=== PATIENT | female | born 1980 | race Caucasian/White ===

== ENCOUNTER → 2019-09-22 | Outpatient (CLI) | payer BC, SELFPAY ==
--- NOTE | 2019-09-22 15:18 | RAD_ITS ---
STUDY: X-RAY - PELVIS AND LEFT HIP REASON FOR EXAM: Female, 39 years old. Pain. TECHNIQUE: 3 views of the pelvis and hip. COMPARISON: None. FINDINGS: There is a non-specific bowel gas pattern. Normal visualized soft tissue structures. Normal bilateral iliac wings, sacroiliac joints and visualized sacrum. Normal bilateral superior and inferior pubic rami. Normal pubic symphysis. Normal bilateral ischial tuberosities. Normal visualized femoral head. Normal acetabulum. Normal hip joint. RAD/HIP, UNI W/ Pelvis 2-3 Views IMPRESSION: Normal x-ray examination of the pelvis and hip. Electronically Signed: Omar Mathur MD at 15:54 EST , Service support ,
== END | disposition home or self-care (01) ==
LOC: HPRAD 15:14
PROVIDERS: Family Provider Internal Medicine; PCP Internal Medicine; Referring Provider Nurse Practitioner; Visit Provider Nurse Practitioner
DX: M25.552 Pain in left hip (principal)
CPT/HCPCS: 73502

== ENCOUNTER → 2019-09-24 | Outpatient (CLI) | payer BC, SELFPAY ==
[2019-09-30 15:30] LABS: HPV Reflexed? NOT INDICATED
== END | disposition home or self-care (01) ==
LOC: LABSPEC 15:51
PROVIDERS: Family Provider Internal Medicine; PCP Internal Medicine; Referring Provider Obstetrics & Gynecology; Visit Provider Obstetrics & Gynecology
DX: Z12.4 Encounter for screening for malignant neoplasm of cervix (principal)
CPT/HCPCS: 88175; G0145

== ENCOUNTER → 2019-10-06 | Outpatient (CLI) | payer BC, SELFPAY ==
--- NOTE | 2019-10-06 07:01 | BI_ITS ---
MAMMOGRAPHY - BILATERAL SCREENING REASON FOR EXAM: Female, 39 years old. Routine annual screening examination. PERTINENT HISTORY: Aunt with breast cancer. TECHNIQUE: Digital bilateral breast deborah (3D mammographic acquisition) in the CC and MLO projections. 2-D mediolateral oblique (MLO) and craniocaudad (CC) views of both breasts were obtained. CAD: Full Field Digital Mammography with Computer Added Detection was performed. COMPARISON: None. Baseline examination. FINDINGS: Breast Composition: The breasts are heterogeneously dense, which may obscure small masses. There are no dominant masses or suspicious calcifications. No other significant abnormalities are identified. BI/SCREEN MAMM (CAD) W/DEBORAH BILAT IMPRESSION: Negative screening mammogram. Yearly followup mammogram recommended. (A) ASSESSMENT CATEGORY: BIRADS Category 1: Negative. A letter regarding these results will be sent to the patient by the facility within 30 days. Approximately 10% of breast cancers are not detected by mammography. A normal mammogram should not delay biopsy of a clinically suspicious abnormality. [id number] Electronically Signed: Geraldo Denise, at 8:19 EST , Service support ,
== END | disposition home or self-care (01) ==
LOC: OPBI 06:59
PROVIDERS: Family Provider Nurse Practitioner; PCP Nurse Practitioner; Referring Provider Obstetrics & Gynecology; Visit Provider Obstetrics & Gynecology
DX: Z12.31 Encounter for screening mammogram for malignant neoplasm of breast (principal)
CPT/HCPCS: 77063; 77067

== ENCOUNTER → 2021-05-12 12:15 | Outpatient (CLI) | payer BC, SELFPAY ==
[2021-05-18 11:45] LABS: HPV Reflexed? NOT INDICATED
== END ==
PROVIDERS: PCP Nurse Practitioner; Visit Provider Obstetrics & Gynecology
DX: Z12.4 Encounter for screening for malignant neoplasm of cervix (principal)
CPT/HCPCS: 88175; G0145

== ENCOUNTER → 2021-06-02 07:03 | Outpatient (CLI) | payer BC, SELFPAY ==
--- NOTE | 2021-06-02 07:06 | BI_ITS ---
MAMMOGRAPHY - BILATERAL SCREENING REASON FOR EXAM: Female, 40 years old. Routine annual screening examination. PERTINENT HISTORY: Aunt with breast cancer. TECHNIQUE: Digital bilateral breast deborah (3D mammographic acquisition) in the CC and MLO projections. 2-D mediolateral oblique (MLO) and craniocaudad (CC) views of both breasts were obtained. CAD: Full Field Digital Mammography with Computer Added Detection was performed. COMPARISON: Comparison is made with prior examination dated 10/06/2019. FINDINGS: Breast Composition: The breasts are heterogeneously dense, which may obscure small masses. There are no dominant masses or suspicious calcifications. Stable benign-appearing bilateral axillary lymph nodes. No other significant abnormalities are identified. There has been no significant change since the prior study. BI/SCRN MAMM (CAD)W/DEBORAH BILAT IMPRESSION: Stable bilateral screening mammogram. Yearly follow-up mammogram recommended. (A) ASSESSMENT CATEGORY: BIRADS Category 2: Benign. A letter regarding these results will be sent to the patient by the facility within 30 days. Approximately 10% of breast cancers are not detected by mammography. A normal mammogram should not delay biopsy of a clinically suspicious abnormality. [id number] Electronically Signed: Geraldo Denise MD at 8:44 EDT , Service support ,
== END ==
PROVIDERS: PCP Nurse Practitioner; Referring Provider Obstetrics & Gynecology; Visit Provider Obstetrics & Gynecology
DX: Z12.31 Encounter for screening mammogram for malignant neoplasm of breast (principal)
CPT/HCPCS: 77063; 77067

== ENCOUNTER → 2021-10-07 10:08 | Outpatient (CLI) | payer BC, SELFPAY ==
--- NOTE | 2021-10-07 09:50 | EMB_PTH ---
PATIENT: AMBER DANIELS LOC: [facility] U#:[id number] AGE/SX: 45/F ROOM: RE10/07/[address]: Dr. Zack Myers MD : 1980 BED: DIS: SPEC #: [id number] RECD: 10/07/21 12:37 STATUS: WENCESLAO RERamses #: [id number] GAGAN: 10/07/21 09:[address]: Zack Myers DEPT: SURGICAL PATHOLOGY RECD BY: Camila Freeman ENTERED: 10/07/21 14:21 SP TYPE: ENDOM BX/C GIN DR: RAYSA Ling Tissues: Endometrium, NOS Procedures: Surgery Specimen Level IV HEADER OPERATION: Endometrial biopsy PRE-OP DIAGNOSIS: TISSUE SUBMITTED: Endometrial biopsy MICROSCOPIC DIAGNOSIS Endometrium, biopsy: Secretory endometrium with changes of simple cystic hyperplasia without atypia. AM:tonja 10/10/2021 COMMENT Case has been reviewed in consultation with Dr. Lock who concurs with the above diagnosis. IDC:AM MICROSCOPIC DESCRIPTION Slides are reviewed. GROSS DESCRIPTION Received in fixative is one container labeled with the patient's name and designated endometrial biopsy. The specimen consists of multiple irregular and elongated fragments of pink-miller soft tissue that in aggregate measure 3 x 2.2 x 0.2 cm. The specimen is totally submitted in one cassette. / AM:tonja 10/07/21 TC:5 CPT: 09164
== END ==
PROVIDERS: PCP Nurse Practitioner; Visit Provider Obstetrics & Gynecology
DX: Z12.4 Encounter for screening for malignant neoplasm of cervix (principal)
CPT/HCPCS: 88305

== ENCOUNTER 2021-12-27 05:22 | Day surgery (SDC) | payer BC, SELFPAY ==
--- NOTE | 2021-12-20 16:16 | EKG12_ITS ---
Test Reason : PREOP Blood Pressure : / mmHG Vent. Rate : 089 BPM Atrial Rate : 089 BPM P-R Int : 140 ms QRS Dur : 082 ms QT Int : 388 ms P-R-T Axes : 034 -22 039 degrees QTc Int : 472 ms Normal sinus rhythm Normal ECG Confirmed by FEDERICO WILLS, UTE ([id number]), society editor RANDY SUAREZ ([id number]) on 12/21/2021 7:22:04 AM Referred By: Zack Myers Confirmed By:UTE CABALLERO MD
[2021-12-20 17:10] LABS: Hematocrit 32.1 % (37-47); Hemoglobin 10.4 g/dL (12.0-15.0); Mean Corp Hgb Conc 32.4 g/dL (32-36); Mean Corpuscular Hgb 25.4 pg (27.0-32.0); Mean Corpuscular Volume 78.3 fL (81-99); Mean Platelet Vol. 9.4 fl (6.2-12.0); Platelet Count 380 K/mm3 (150-450); RBC Distribution Width CV 15.4 % (11.6-14.6); RBC Distribution Width SD 43.4 fl (35.1-43.9); White Blood Count 9.4 K/mm3 (4.4-11.0)
[2021-12-20 17:24] LABS: International Normalized Ratio 0.9; Prothrombin Time (Protime)PT. 11.7 SECONDS (11.7-14.9)
[2021-12-20 17:25] LABS: Partial Thromboplast Time 32.6 Seconds (24.1-36.2)
[2021-12-20 18:21] LABS: Internal QC Validated? YES +Cl - CLEAR BKGD; Pregnancy, Serum, hCG Quali. NEGATIVE Negative
[2021-12-27] VITALS (14 sets, daily range): BP systolic 104–151; BP diastolic 68–97; PULSE 67–97; RESP 11–18; TEMP 36.1–36.7; O2SAT 90–100; BMI 44.5
[2021-12-27] MEDS: Gabapentin 600 MG Tablet PO (06:03)
[2021-12-27] MEDS: Lactated Ringers 1,000 ML 40 ML IV (06:03)
[2021-12-27] MEDS: Acetaminophen 500 MG Tablet 1000 MG PO (06:03)
[2021-12-27 06:41] LABS: Bedside Glucose 111 mg/dL (70-110)
--- NOTE | 2021-12-27 07:30 | HYST_PTH ---
PATIENT: AMBER DANIELS [place] [facility] [place][id number] AGE/SX: 41/F ROOM: RE12/27/[address]: Dr. Zack Myers MD : 1980 BED: DIS: 12/27/2021 SPEC #: [id number] RECD: 12/27/21 11:13 STATUS: WENCESLAO CHAI #: [id number] GAGAN: 12/27/21 07:[address]: Zack Myers DEPT: SURGICAL PATHOLOGY RECD BY: Camila Freeman ENTERED: 12/27/21 12:00 SP TYPE: HYSTERECT OTHR DR: Louisa Troncoso, PHOTO CARTOGRAPHER-C Tissues: Uterus, NOS Procedures: Surgery Specimen Level V HEADER OPERATION: ERAS, lap robotic hysterectomy, bilateral salpingectomy PRE-OP DIAGNOSIS: Premenopausal menorrhagia and simple endometrial hyperplasia TISSUE SUBMITTED: Cervix, uterus and bilateral fallopian tubes MICROSCOPIC DIAGNOSIS Uterus, cervix, bilateral fallopian tubes, hysterectomy and bilateral salpingectomy: Cervix ? chronic inflammation and squamous metaplasia. Endometrium ? proliferative endometrium with focal simple cystic hyperplasia without atypia and morular metaplasia. Myometrium ? focal adenomyosis. - A minute submucosal leiomyoma. Bilateral fallopian tubes - no pathologic diagnosis. Left paratubal cyst. SJ:rg 12/28/2021 COMMENT Please make reference to previous specimen ([id number]) endometrium, biopsy with diagnosis of ?secretory endometrium with changes of simple cystic hyperplasia without atypia.? MICROSCOPIC DESCRIPTION Slides are reviewed. GROSS DESCRIPTION Received in fixative is one container labeled with the patient's name and designated cervix, uterus and bilateral fallopian tubes. The specimen consists of a hysterectomy specimen consisting of uterus with cervix and attached bilateral fallopian tubes. The uterus with cervix weighs 132 gm and measures 11 x 7 x 5 cm. The serosal surface shows a focal ragged area. The ectocervical mucosa is unremarkable. The external os is circular in contour. The endocervical canal measures 3.5 cm in length and the endocervical mucosa is miller, glistening and unremarkable. The triangular endometrial cavity measures 5.5 cm in length and up to 3 cm in width. The endometrium is miller, glistening without any mass lesion and measures 0.1 cm in thickness. Sections of the uterine wall do not reveal any mass lesion and it measures up to 2.5 cm in thickness. The right fallopian tube measures 7 cm in length and 0.6 cm in diameter. The fimbrial end is identified. Sections reveal unremarkable cut surfaces. The left fallopian tube is similar appearance to right and measures 6.5 cm in length and 0.6 cm in diameter. A paratubal cyst is also noted measuring 0.6 cm in greatest dimension. Mail Sorter And Delivery sections are submitted in 12 cassettes as follows: 1??anterior cervix, 2 - posterior cervix, 3-6 - anterior uterine wall, 7-10 - posterior uterine wall (entire endometrium is submitted), 11 - right fallopian tube, 12 - left fallopian tube and paratubal cyst. / SJ:rg 12/27/2021 TC:5 CPT: 43694
--- NOTE | 2021-12-27 07:37 | PCM.HP.BLA ---
History and Physical Date of Admission: 12/27/21 Surgical History and Physical Jennifer Bronson, a 41 year old female 2 0 0 0 2, presents for RAVH/BS on December 27, 2021. -- Menorrhagia; Simple EM Hyperplasia -- Menorrhagia and simple hyperplasia which began months ago. Jennifer claims it started gradually It occurs intermittantly. It is located in the vagina. Additional comments are: unable to tolerate provera; strong family history of gynecologic cancers; wants to proceed with hysterectomy. MEDICATIONS HISTORY: Patient is also takin. losartan 50 mg tablet, One pill by mouth once a day ALLERGIES: NKDA Infections - Chicken pox Illnesses - none Accidents - None Hospitalizations - see surgery Review of Systems: GENERAL - Denies fever, or chills SKIN - Denies skin changes EYES - Denies visual changes EARS - Denies difficulty hearing NOSE - Denies nasal congestion or bleeding MOUTH - Denies sore throat or difficulty swallowing NECK - Denies pain or swelling RESPIRATORY - Denies shortness of breath or wheezing CARDIOVASCULAR - Denies palpitations or chest pain GASTROINTESTINAL - Denies nausea, vomiting, diarrhea, constipation GENITOURINARY - Denies dysuria, frequency of urination, incontinence of urine MUSCULOSKELETAL - Denies joint or muscle pain NEUROLOGICAL - Denies localized numbness or weakness PSYCHIATRIC - Denies depression or anxiety ENDOCRINE - Denies heat or cold intolerance, weight loss or gain HEMATO-IMMUNOLOGIC - Denies excesive bleeding with cuts SOCIAL HISTORY: Alcohol Use - None Smoking - Never Diet - no particular diet Lifestyle - moderate stress lifestyle and Exercise - regular Seat Belt Use - always 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 Father: DM II and Heart Disease. Maternal Grandmother: Colon Cancer. Paternal Grandmother: DM II. MENSTRUAL HISTORY: LMP Known?- DefiniteAmount/Duration - 15 days, Regularity - Regular, Frequency - monthly days, LMP - 10/14/21, Age Onset Menarche - 11 PAST PREGNANCIES: Total Pregnancies - 2; Full Term Pregnancies - 2; Premature - 0; Abortions, Induced - 0; Abortions, Spontaneous - 0; Ectopics - 0; Multiple Births - 0; Living Children - 2 SURGICAL HISTORY: 1. 04/28/1996 2. 03/06/2002 PHYSICAL EXAM BP- 126/74 Sitting, Right arm, large cuff Weight- 293.0 lbs Height- 67 inch BMI:45.9 CONSTITUTIONAL - NAD, well nourished, and well developed SKIN - No rash, lesions, or ulcers HEENT - Normocephalic, PERRLA, EOMI NECK - No nodes, no nuchal rigidity and thyroid normal size and texture LYMPH NODES - Palpation of lymph nodes in neck and groins within normal limits LUNGS - CTA x2 without wheezes, crackles or rales CARDIAC - Regular rate and rhythm without rubs, murmurs, or gallops BREAST - No dominant masses, no tenderness, no axillary adenopathy, no nipple discharge, no skin changes ABDOMEN - Without hepatosplenomegaly, distention, masses, rebound, or guarding; normal bowel sounds; no hernias EXTREMITIES - No edema or calf tenderness NEUROLOGICAL - Cranial nerves II-XII grossly intact PSYCHIATRIC - A and O to time, place, person, mood and affect External Genitial Vagina - non-tender without lesions Urethra/Urethral Meatus - non-tender Bladder - non-tender Vagina - vaginal sanchez are pink and moist without loss of rugae and no evidence of atropy Cervix - without cervical motion tenderness and has normal size and features without evident lesions Uterus - multiparous size 6 cm & wt 75-125 g Adnexa - clear without massess or tenderness ASSESSMENT/PLAN: 1. Premenopausal Menorrhagia and Simp Endomet Hyperplasia Discussed options for treatment and patient declines further progesterone treatment including IUD or oral. Wants to proceed with hysterectomy. Plan RAVH/BS. Discussed RBAs and all questions answered.
--- NOTE | 2021-12-27 07:50 | OP.PCM_ITS ---
Report of Operation Date of Procedure: 12/27/21 Pre-Operative Diagnosis: Menorrhagia, Simple Endometrial Hyperplasia Post-Operative Diagnosis: Menorrhagia, Simple Endometrial Hyperplasia Surgery/Procedure Performed:: Robotic Assisted Vaginal Hysterectomy and Bilateral Salpingectomy Description of Surgical Findings:: 10 cm uterus with normal-appearing fallopian tubes and ovaries. Evidence of prior section with bladder adhered to the anterior portion of the uterus. Surgeon: Zack Myers paper box cutter: Peter Light Type of Anesthesia: General (Endotracheal) Anesthesiologist: John Martinez Specimen's removed: Uterus and bilateral fallopian tubes Drains: Nayak to straight drain (removed at end of case) Estimated Blood Loss (mL): Minimal Fluids Replaced: Crystalloid Description of Procedure: Surgeon: Zack Myers MD, FACOG Indication: This is a 41 year old patient who has been having problems with heavy periods and simple endometrial hyperplasia. Conservative measures have not been helpful. The patient has been counseled regarding the risks, benefits and alternatives of this procedure including the possibility of bleeding, infection, and injury to surrounding structures such as bowel bladder and all questions were answered. She understands that if BSO is needed that she will need to be on HRT for an indefinite period of time. Procedure: Pt taken to the operating room where, after induction of general anesthesia, the patient was prepped and draped in the usual sterile fashion and placed on a non-slip Huggy-u-vac device. Trendelenburg test was satisfactory. Bladder was drained of urine with a Nayak catheter which was left in place. Anterior cervix grasped and cervix was dilated to about 3-4 mm. Uterus sounded to 10 cms. 0-Vicryl suture was placed at the 3:00 and 9:00 position of the cervix. A small [employer] Business Process Expert Uterine Manipulator was then placed in the uterus and attention was turned to the laparoscopic portion of the procedure. Ropivocaine 0.5% was injected approximately 2-3 cm superior to the umbilicus and an 8 mm robotic camera port was introduced directly with intraperitoneal placement confirmed with CO2 insufflation. 8 mm robotic side ports were introduced under direct visualization approximately 11 cm lateral and 2 cm inferior to the umbilical port. A 5 mm left upper quadrant port was introduced and airseal insufflation with CO2 was started. The above findings were noted. Robot was docked without difficulty and attention turned to the robotic portion of the procedure. Approximately 30 cc of Ropivicaine was used. Bilateral mesosalpinx were ligated with 35 umanzor bipolar coagulation to the level of the round ligament. The posterior aspect of the cervix was identified and then opened for about 1 cm using 25 watt monopolar cautery identifying the uterine manipulating device which had been placed vaginally. Bladder flap was opened and divided to the level of the round ligaments using monopolar cautery. Progressive bites were then ligated on each side of the cervix with 35 umanzor bipolar cautery to the uterine arteries. The anterior vaginal mucosa was entered and cervix circumscribed with monopolar cautery. Uterus and attached tubes were removed through the vagina. Vaginal cuff was closed first with 0-Vicryl Rukhsana stitches placed at each angle followed by closure of the mid-cuff with 0- Monocryl V-lock suture in two layers. Pelvis was copiously irrigated with saline and the right and left ureter was noted to peristalse. Pop was placed across the vaginal cuff and pedicles to help with some oozing. Robot was undocked and trocars were removed with as much gas as possible. Incisions were closed with 4-0 Monocryl subcuticular sutures and incisions covered with steri-strips. The patient tolerated the procedure well and was taken to the recovery room in satisfactory condition. Sponge, instruments and needle counts were all correct. There were no apparent complications of the surgery. Ancef 3 gms IV was given prior to the procedure. Estimated Blood Loss: Minimal Specimen to Pathology: Uterus and bilateral fallopian tubes Grafts/Implants Used: None Complications None Admit VTE Documentation VTE Present on Admission: Yes VTE Mechan Device Prophylaxis: SCD's
[2021-12-27] MEDS: Ropivacaine 0.5% 30 ML Vial (08:13)
--- NOTE | 2021-12-27 09:45 | PCM.DC ---
Discharge Instructions Diet Discharge Diet: No restrictions Activity Discharge Activity: May Shower and May Take a Tub Bath May resume sexual activity in: 6 weeks (nothing in the vagina.) Lifting Restrictions: 25 pounds for 6 weeks. Additional Activity Instructions:: Nothing in the vagina for 6 weeks please; no lifting more than 20-25 lbs for 6 weeks. Use Ibuprophen 800 mg orally every 8 hours as needed for pain. Can also add Tylenol 1000 mg every 8 hours if needed for pain. If Ibuprophen and Tylenol are not effective then use the Oxycodone but keep in mind it can cause serious constipation issues. Drink lots of water. Call if bleeding more than a pad per hour. Use the colace as constipation is a big issue after this type of surgery. Steps and walking are OK. Activity is encouraged but do not over do it !! Dressing / Incision Call your doctor if your incision/area has: Continuous Slow Oozing, Sudden Increased Bleeding, Increased Pain/ Swelling, Increased Redness and Foul Smelling Discharge Call your doctor if you observe: Fever of 101 or Higher, Inability to urinate, Inability to have a bowel movement, Using more than 1 pad per hour and - (Some vaginal bleeding may be noted for up to 4-8 weeks.) Cleanse incision/area with: - (Let the soapy water run over your incision, rinse and pat dry.) Additional Dressing/Incision Instructions:: The white strips (Steri Strips) on your incisions will fall off on their own. If they fall off and it bothers you it is okay to put Band-Aids across the incisions. Follow Up Care Please Follow Up With: Zack Myers MD When: Call [phone] for an appointment to be seen in 2 weeks. Test Results: Test results from this visit will be discussed in further detail at your follow-up appointment, if applicable. Discharge Plan Admission Attending Provider: Zack Myers Primary Care Provider: Louisa Troncoso NP Discharge Orders/Prescriptions Prescriptions: New oxycodone 5 mg capsule 5 mg PO Q6H PRN (Reason: pain (scale score 7-10)) 7 Days Qty: 7 RF: 0 docusate sodium 100 mg tablet 100 mg PO BID PRN (Reason: constipation) Qty: 60 RF: 1 Continued losartan 50 mg Tablet 50 mg PO DAILY RF: 0 cholecalciferol (vitamin D3) [Vitamin D3] 125 mcg (5,000 unit) Tablet 125 mcg PO DAILY RF: 0 Other Ambulatory Orders: ,Urine (Routine) Timeframe: 20211226 Facility: [facility] - Location: Laboratory Ordered By: Dr. Poli Myers 12 Lead EKG (Routine) Timeframe: 20211220 Location: None Selected Ordered By: Dr. Poli Myers Referrals / Follow Up: Louisa Troncoso [employer], [employer] [Primary Care Provider] - Disposition Disposition (needs filled in before D/C Order can be placed): Home, Self Care
[2021-12-27] MEDS: Ondansetron 4 MG/2 ML Vial IV (10:59)
== END 2021-12-27 23:59 | disposition home or self-care (01) ==
LOC: SDC 05:23 → AC 05:23
PROVIDERS: PCP Nurse Practitioner; Referring Provider Obstetrics & Gynecology; Visit Provider Obstetrics & Gynecology
PROC: 0UT90ZZ Resection of Uterus, Open Approach (ICD-10-PCS; CPT S2900; principal; 2021-12-27 07:10)
DX: N85.01 Benign endometrial hyperplasia (principal); N87.9 Dysplasia of cervix uteri, unspecified; N83.8 Other noninflammatory disorders of ovary, fallopian tube and broad ligament; I10 Essential (primary) hypertension; Z79.899 Other long term (current) drug therapy
CPT/HCPCS: S2900; 00840; 58571; 36415; 82962; 84703; 85027; 85610; 85730; 86850; 86900; 86901; 88307; 93005; J7120; J2405

== ENCOUNTER → 2022-11-06 | Outpatient (CLI) | payer BC, SELFPAY ==
--- NOTE | 2022-11-06 13:41 | BI_ITS ---
MAMMOGRAPHY - BILATERAL SCREENING REASON FOR EXAM: Female, 42 years old. Routine annual screening examination. PERTINENT HISTORY: Aunt with breast cancer. TECHNIQUE: Digital bilateral breast deborah (3D mammographic acquisition) in the CC and MLO projections. 2-D mediolateral oblique (MLO) and craniocaudad (CC) views of both breasts were obtained. CAD: Full Field Digital Mammography with Computer Added Detection was performed. COMPARISON: Comparison is made with prior examination dated 06/02/2021 and 10/06/2019. FINDINGS: Breast Composition: The breasts are heterogeneously dense, which may obscure small masses. There are no dominant masses or suspicious calcifications. Stable small benign-appearing bilateral axillary lymph nodes. No other significant abnormalities are identified. There has been no significant change since the prior study. BI/SCRN MAMM (CAD)W/DEBORAH BILAT IMPRESSION: Stable bilateral screening mammogram. Yearly follow-up mammogram recommended. (A) ASSESSMENT CATEGORY: BIRADS Category 2: Benign. A letter regarding these results will be sent to the patient by the facility within 30 days. Approximately 10% of breast cancers are not detected by mammography. A normal mammogram should not delay biopsy of a clinically suspicious abnormality. [id number] Electronically Signed: Geraldo Denise MD at 8:47 EST ,
== END | disposition home or self-care (01) ==
LOC: OPBI 13:40
PROVIDERS: PCP Nurse Practitioner Family; Referring Provider Nurse Practitioner Family; Visit Provider Nurse Practitioner Family
DX: Z12.31 Encounter for screening mammogram for malignant neoplasm of breast (principal)
CPT/HCPCS: 77063; 77067

== ENCOUNTER → 2023-12-21 | Outpatient (CLI) | payer BC, SELFPAY ==
--- NOTE | 2023-12-21 09:36 | BI_ITS ---
MAMMOGRAPHY - BILATERAL SCREENING REASON FOR EXAM: Female, 43 years old. Routine annual screening examination. PERTINENT HISTORY: Aunt with breast cancer. TECHNIQUE: Digital bilateral breast deborah (3D mammographic acquisition) in the CC and MLO projections. 2-D mediolateral oblique (MLO) and craniocaudad (CC) views of both breasts were obtained. CAD: Full Field Digital Mammography with Computer Added Detection was performed. COMPARISON: Comparison is made with prior study dated November 06, 2022 and June 02, 2021. FINDINGS: Breast Composition: The breasts are heterogeneously dense, which may obscure small masses. There are no dominant masses or suspicious calcifications. Stable benign-appearing bilateral axillary lymph nodes. No other significant abnormalities are identified. There has been no significant change since the prior study. BI/SCRN MAMM (CAD)W/DEBORAH BILAT IMPRESSION: Stable bilateral screening mammogram. Yearly follow-up mammogram recommended. (A) ASSESSMENT CATEGORY: BIRADS Category 2: Benign. A letter regarding these results will be sent to the patient by the facility within 30 days. Approximately 10% of breast cancers are not detected by mammography. A normal mammogram should not delay biopsy of a clinically suspicious abnormality. [id number] Electronically Signed: Geraldo Denise MD at 12:56 EST ,
== END | disposition home or self-care (01) ==
LOC: OPBI 09:35
PROVIDERS: PCP Internal Medicine; Referring Provider Internal Medicine; Visit Provider Internal Medicine
DX: Z12.31 Encounter for screening mammogram for malignant neoplasm of breast (principal)
CPT/HCPCS: 77063; 77067

== ENCOUNTER → 2025-01-28 | Outpatient (CLI) | payer BC, SELFPAY ==
--- NOTE | 2025-01-28 08:30 | BI_ITS ---
PROCEDURE: SCRN MAMM (CAD)W/DEBORAH BILAT REASON FOR EXAM: F, Age 44 y/o , SCREENING MAMMOGRAM. Family history of breast cancer in 2 maternal aunts. TECHNIQUE: Bilateral screening digital breast tomosynthesis with 2D and 3D images. Computer aided detection. COMPARISON: 12/21/2023, 11/06/2022 FINDINGS: There are scattered areas of fibroglandular density. No suspicious masses, areas of developing architectural distortion, or suspicious calcifications. BI/SCRN MAMM (CAD)W/DEBORAH BILAT IMPRESSION: There is no mammographic evidence of malignancy. BI-RADS 1: NEGATIVE. RECOMMEND ANNUAL MAMMOGRAPHIC SCREENING. Follow-up code: Routine Follow-up The patient will be notified of the results by letter. Reading Location: [id number]
== END | disposition home or self-care (01) ==
LOC: OPBI 08:16
PROVIDERS: PCP Internal Medicine; Referring Provider Obstetrics & Gynecology; Visit Provider Obstetrics & Gynecology
DX: Z12.31 Encounter for screening mammogram for malignant neoplasm of breast (principal)
CPT/HCPCS: 77063; 77067

== ENCOUNTER → 2025-04-20 | Outpatient (CLI) | payer BC, SELFPAY ==
--- NOTE | 2025-04-20 09:57 | CDU_ITS ---
Reason For Study Reason For Study: Noise effect Rt inner ear Rt. Velocities/BP Lt. Velocities/BP Prox CCA 110/31 cm/sec. Prox CCA 90/26 cm/sec. Mid CCA 91/21 cm/sec. Mid CCA 70/26 cm/sec. Dist CCA 60/19 cm/sec. Dist CCA 71/28 cm/sec. Prox ICA 54/18 cm/sec. Prox ICA 56/20 cm/sec. Mid ICA 77/35 cm/sec. Mid ICA 83/41 cm/sec. Dist ICA 68/31 cm/sec. Dist ICA 108/41 cm/sec. Rt. ICA/CCA = 0.8. Lt. ICA/CCA = 1.5. Prox ECA 109/20 cm/sec. Prox ECA 90/18 cm/sec. Rt. Vert. 61/22 cm/sec. Lt. Vert. 53/23 cm/sec. Right Extracranial There is intimal thickening but no significant atherosclerotic plaque noted in the right common carotid artery. There is intimal thickening but no significant atherosclerotic plaque noted in the right internal carotid artery. There is no significant atherosclerotic plaque noted in the right external carotid artery. Antegrade flow is noted in the right vertebral artery. Left Extracranial There is intimal thickening but no significant atherosclerotic plaque noted in the left common carotid artery. There is intimal thickening but no significant atherosclerotic plaque noted in the left internal carotid artery. There is intimal thickening but no significant atherosclerotic plaque noted in the left external carotid artery. Antegrade flow is noted in the left vertebral artery. Procedure Carotid Duplex 92244. This is a Carotid Duplex examination using B-mode, color flow and specral Doppler. Exam performed in department. VL/Carotid Duplex Ultrasound Interpretation Summary No significant atherosclerotic plaque or stenosis noted in the internal carotid arteries bilaterally. Flow within the vertebral arteries is antegrade bilaterally. Ordering Physician: Tiffanie Nice Referring Physician: Tiffanie Nice Performed By: Barbara Chan, RDCS, RVT
== END | disposition home or self-care (01) ==
PROVIDERS: PCP Internal Medicine; Referring Provider Internal Medicine; Visit Provider Internal Medicine
DX: H83.3X1 Noise effects on right inner ear (principal)
CPT/HCPCS: 93880

== ENCOUNTER 2025-08-17 10:30 | Outpatient (RCR) | payer BC, SELFPAY ==
--- NOTE | 2025-08-03 09:58 | HP.PTEVAL ---
Patient's Visit Information Visit Information Visit Information: AMBER DANIELS is a 45 year old F referred to Physical Therapy by Dr. Tiffanie Nice DO with a diagnosis of C-spine pain with Radic/muscle spasms. Date of Evaluation: 08/03/25 Physical Therapist: ODALYS Conte Visit Plan Frequency: 1-2x /Week Duration: 6 Weeks Plan: 1-2X/ week for 6 weeks for MT to B paraspinals, centralization of sx using extension principle, traction, suboccip release, postural exercises, with HEP HEP: supine chin tucks 2 X 10 4x/day Subjective Subjective: Pt started to have neck pain for a few months. She thought it was a pillow issues and was sleeping wrong. She has always had a really tight neck and a bulge on one side. She has N&T in her sleep for the last few months down both arms during the night and wakes her up and down the L during the day not often. X-ray showed DDD and narrow at C5-C6. She has noticed some weakness in her fingers and struggling to open things in the last month. Today is last day of Prednisone and the pain has lightened up a little bit but still woke her up last night. She uses a heating pad a lot to help with the pain. Pain C-spine: Pain Intensity (Out of 10): 4 Objective Objective: C-spine AROM: flexion 100%, Ext 10% (increase pain), Rot L 75% (increase pain) and Rot R 90%, SB B 50% UE AROM: WFL Shoulder AROM UE MMT: (Pt reports L shoulder weaker as she broke it as a child) R shoulder flex 9.5 and L 7 R shoulder ABD 7.5 and L 7.6 R shoulder ER 11.9 and L 8.3 Bicep reflex B 2+/3 Posture: sits with upright posture Sports Administrator strength: R 84 and L 66 Massaged out on the R c-spine paraspinals and improved rotation ROM to the L with less pain. Chin tucks in supine: 3 X 10 with a towel...painful if goes too far to end range but improves the more that she did. Discussed upright posture Balance/Special Test Scores Oswestry Neck Score: 9 Goals Goal 1:: I HEP Goal Time Frame: 6-8 Weeks Goal 2:: Improve pain free c-spine AROM: (at the time of the eval: C-spine AROM: flexion 100%, Ext 10% (increase pain), Rot L 75% (increase pain) and Rot R 90%, SB B 50%) Goal Time Frame: 6-8 Weeks Goal 3:: Abolish N&T in B hands Goal Time Frame: 6-8 Weeks Rehabilitation Potential Rehabilitation Potential: Good Anticipated Interventions Patient/Client Instruction: Educate patient on: Condition and Plan of Care For the Purpose of:: To decrease pain, To increase ROM, To improve nutrient delivery to tissue, To improve muscle performance and motor function, To improve ability to perform ADL's, To increase tolerance to activity/condition/position, To improve performance and independence with ADL's, To decrease level of supervision to perform tasks, To improve ability of physical actions for home/community/work/leisure, To improve health of tissue, To decrease soft tissue restriction and To increase flexibility/ROM Therapeutic Exercise to Include: Strength training, Postural training, Neuromotor development, Passive ROM, Active ROM and Scapular Strength/Stabilization For the Purpose of:: To decrease pain, To increase ROM, To improve muscle performance and motor function, To improve ability to perform ADL's, To improve health of tissue, To decrease soft tissue restriction and To increase flexibility/ROM Manual Therapy Techniques to Include: Passive ROM and Soft tissue mobilization For the Purpose of:: To decrease pain, To increase ROM, To improve nutrient delivery to tissue, To improve muscle performance and motor function, To improve ability to perform ADL's, To improve gait and locomotor functions, To decrease soft tissue restriction and To increase flexibility/ROM IF ES: Yes Cryotherapy (ice pack, ice massage): Yes Thermo therapy (hot pack): Yes Ultrasound (thermal/non thermal): Yes Intermittent cervical traction: Yes For the Purpose of:: To decrease pain, To increase ROM, To improve nutrient delivery to tissue, To improve muscle performance and motor function, To increase tolerance to activity/condition/position, To improve health of tissue, To decrease soft tissue restriction and To increase flexibility/ROM Text: Thank you for the opportunity to evaluate your patient. For Medicare and Medicare HMO plans, please review the plan of care and approve it. It will need to be FAXED BACK to us at [phone] for Medicare purposes. For Medicare only, by signing this I certify the plan of care. Please let me know if there are questions or concerns regarding this plan of care. Physician Signature: Date:
--- NOTE | 2025-09-23 13:24 | HP.PTDCNRP_ITS ---
Patient Information Patient Information: AMBER DANIELS was seen in my office for initial evaluation on 08/03/25. The following Plan of Care was established for this patient: POC Established Initial Frequency: 1-2x /Week Initial Duration: 6 Weeks Anticipated Interventions Patient/Client Instruction: Educate patient on: Condition and Plan of Care For the Purpose of:: To decrease pain, To increase ROM, To improve nutrient delivery to tissue, To improve muscle performance and motor function, To improve ability to perform ADL's, To increase tolerance to activity/condition/position, To improve performance and independence with ADL's, To decrease level of supervision to perform tasks, To improve ability of physical actions for home/community/work/leisure, To improve health of tissue, To decrease soft tissue restriction and To increase flexibility/ROM Therapeutic Exercise to Include: Strength training, Postural training, Neuromotor development, Passive ROM, Active ROM and Scapular Strength/Stabilization For the Purpose of:: To decrease pain, To increase ROM, To improve muscle performance and motor function, To improve ability to perform ADL's, To improve health of tissue, To decrease soft tissue restriction and To increase flexibility/ROM Manual Therapy Techniques to Include: Passive ROM and Soft tissue mobilization For the Purpose of:: To decrease pain, To increase ROM, To improve nutrient delivery to tissue, To improve muscle performance and motor function, To improve ability to perform ADL's, To improve gait and locomotor functions, To decrease soft tissue restriction and To increase flexibility/ROM IF ES: Yes Cryotherapy (ice pack, ice massage): Yes Thermo therapy (hot pack): Yes Ultrasound (thermal/non thermal): Yes Intermittent cervical traction: Yes For the Purpose of:: To decrease pain, To increase ROM, To improve nutrient delivery to tissue, To improve muscle performance and motor function, To incr ease tolerance to activity/condition/position, To improve health of tissue, To decrease soft tissue restriction and To increase flexibility/ROM Last Seen Last Seen: This patient was last seen in our office 08/17/25. Pertinent comments regarding their Physical therapy will appear below: TINO PT At this point I will be discontinuing this patient from physical therapy. I would be happy to see this patient again in the future if found appropriate by the physician. Thank you! Elsie Brooke, ODALYS Balance/Gait/Functional tests Balance/Special Test Scores Oswestry Neck Score: 9
== END 2025-08-17 19:00 | disposition home or self-care (01) ==
LOC: PT 10:30
PROVIDERS: PCP Internal Medicine; Referring Provider Internal Medicine; Visit Provider Internal Medicine
DX: M54.12 Radiculopathy, cervical region (principal); M54.2 Cervicalgia; M62.838 Other muscle spasm
CPT/HCPCS: 97110; 97140; 97161